=== PATIENT | female | born 1995 ===

== ENCOUNTER 2022-11-10 02:47 | Emergency (ER) | payer OTHER ==
[2022-11-10] MEDS ORDERED: HYDROcodone/ACETAM 7.5 MG/325 MG 15 ML UDC PO STA (03:39)
[2022-11-10] MEDS ORDERED: predniSONE 20 MG TABLET PO STA (03:39)
--- NOTE | 2022-11-10 03:53 | ED Physician Documentation ---
History of Present Illness - Stated complaint Stated Complaint: COUGHING/CONGESTION - Chief complaint Chief Complaint: Resp - History obtained from History obtained from: Patient, Family - Additonal information Additional information: The patient comes to the emergency department chief complaint of sore throat, congestion, Eye redness and irritation, and cough for the last 6 approximately week. He states the eye symptoms just started. The patient's main concern is that she has been on fertility medications ahead of an IUI procedure on November 14, and does not want to be sick for that. She states her had the same thing and is now better, but has been more severe for her. No shortness of breath. No chest pain. Review of Systems Ten Systems: 10 systems reviewed and negative Constitutional: reports: Reviewed and negative Eyes: reports: Discharge, Irritation. denies: Loss of vision, Decreased vision, Photophobia Ears: reports: Reviewed and negative Nose: reports: Rhinorrhea / runny nose, Congestion Throat: reports: Sore throat Cardiac: reports: Reviewed and negative Respiratory: reports: Cough GI: reports: Reviewed and negative : reports: Reviewed and negative Skin: reports: Reviewed and negative Musculoskeletal: reports: Reviewed and negative Neurologic: reports: Reviewed and negative Psychiatric: reports: Reviewed and negative Endocrine: reports: Reviewed and negative Immunocompromised: reports: Reviewed and negative PD PAST MEDICAL HISTORY - Present Medications Home Medications: Ambulatory Orders Medication Instructions Recorded Confirmed Chorionic Gonadotropin, Human 5,000 unit IM 11/10/22 [Novarel] Gentamicin 0.3% Ophth Drops 1 drops OPTH BID #5 ml 11/10/22 [Garamycin] HYDROcodone/ACET 7.5/325 PEREZ 10 ml PO Q6HR PRN #100 ml 11/10/22 [Lortab 7.5/325 Perez] Letrozole 2.5 mg PO 11/10/22 Medroxyprogesterone Acetate 5 mg PO 11/10/22 [Provera] Pnv No.95/Ferrous Fum/Folic AC 1 each PO 11/10/22 [ Tablet] predniSONE [Deltasone] 40 mg PO DAILY 5 Days #10 tablet 11/10/22 - Allergies Allergies/Adverse Reactions: Allergies Allergy/AdvReac Type Severity Reaction Status Date / Time No Known Allergies Allergy Unknown Verified 11/10/22 03:37 PD ED PE NORMAL - Vitals Vital signs reviewed: Yes - General General: Alert and oriented X 3, No acute distress, Well developed/nourished - HEENT HEENT: Atraumatic, PERRL, EOMI, Moist mucous membranes, Pharynx benign, Other (Moderate conjunctival injection bilaterally. No chemosis. Corneas are not hazy. No obvious drainage.) - Neck Neck: Supple, no meningeal sign - Cardiac Cardiac: RRR, No murmur - Respiratory Respiratory: No respiratory distress, Clear bilaterally - Abdomen Abdomen: Soft, Non tender, Non distended - Derm Derm: Normal color, Warm and dry, No rash - Extremities Extremities: No deformity, No edema - Neuro Neuro: Alert and oriented X 3 - Psych Psych: Normal mood, Normal affect Results - Vitals Vitals: Vital Signs - 24 hr 11/10/22 11/10/22 03:07 04:02 Temperature 36.9 C 36.7 C Heart Rate 88 91 Respiratory 18 18 Rate Blood Pressure 165/107 H 130/80 O2 Saturation 99 99 Oxygen O2 Source Room air - Labs Labs: Laboratory Tests 11/10/22 03:45 Nasal Adenovirus (PCR) NOT DETECTED Nasal B. parapertussis DNA (PCR) NOT DETECTED Nasal Coronavir 229E PCR NOT DETECTED Nasal Coronavir HKU1 PCR NOT DETECTED Nasal Coronavir NL63 PCR NOT DETECTED Nasal Coronavir OC43 PCR NOT DETECTED Nasal Enterovir/Rhinovir PCR DETECTED A Nasal Influenza B PCR NOT DETECTED Nasal Influenza A PCR NOT DETECTED Nasal Parainfluen 1 PCR NOT DETECTED Nasal Parainfluen 2 PCR NOT DETECTED Nasal Parainfluen 3 PCR NOT DETECTED Nasal Parainfluen 4 PCR NOT DETECTED Nasal RSV (PCR) NOT DETECTED Nasal B.pertussis DNA PCR NOT DETECTED Nasal C.pneumoniae (PCR) NOT DETECTED Omar Human Metapneumo PCR NOT DETECTED Nasal M.pneumoniae (PCR) NOT DETECTED Nasal SARS-CoV-2 (PCR) NOT DETECTED PD Medical Decision Making - ED course Complexity details: reviewed results, re-evaluated patient, considered differential, d/w patient, d/w family ED course: The patient was worked up with a viral panel. After very long discussion, she did also decide to have a dose of prednisone and of hydrocodone here. The patient would like some relief but is afraid to take any medications in advance of her IUI. I have advised her that while I do not feel that the medicines from greater than 24 hours prior would still be in her system at the time of the procedure, she should talk to her fertility specialist to make sure that they are okay with her taking the meds. I have sent prescriptions in for the patient. Departure - Departure Disposition: 01 Home, Self Care Clinical Impression: Upper respiratory tract infection Qualifiers: URI type: unspecified viral URI Qualified Code(s): J06.9 - Acute upper respiratory infection, unspecified Conjunctivitis Qualifiers: Conjunctivitis type: acute Acute conjunctivitis type: viral Laterality: bilateral Qualified Code(s): B30.9 - Viral conjunctivitis, unspecified Condition: Stable Instructions: ED Viral Syndrome Prescriptions: HYDROcodone/ACET 7.5/325 PEREZ [Lortab 7.5/325 Perez] 10 ml PO Q6HR PRN #100 ml PRN Reason: Pain predniSONE [Deltasone] 40 mg PO DAILY 5 Days #10 tablet Gentamicin 0.3% Ophth Drops [Garamycin] 1 drops OPTH BID #5 ml Comments: Your symptoms are most consistent with a viral illness, which will resolve on its own, given time. Depending which virus you have, the symptoms can last anywhere from a few days to a couple of weeks. A viral panel has been drawn and is pending at this time. We will contact you within any significant positives. If you wish to monitor your results online, you may go to our hospital website at [email or web address], click on the "my [facility]" tab, and sign up for the patient portal. You have been treated with a dose of steroid and a liquid narcotic with Tylenol today. Prescriptions for the same been electronically transmitted to the [facility] pharmacy in [place]. These medications will not remain in your system for more than 24 hours, but of course it is advisable to discuss the situation with your fertility specialist to determine whether there is any concern for taking the medications in advance of your procedure. Otherwise, please be sure to stay hydrated and get rest as much as possible. Discharge Date/Time: 11/10/22 04:12
[2022-11-10 04:10] VITALS: BP 130/80
[2022-11-10 05:50] LABS: B. PARAPERTUSSIS- RESP PCR PAN NOT DETECTED; B. PERTUSSIS- RESP PCR PANEL NOT DETECTED; C. PNEUMONIAE- RESP PCR PANEL NOT DETECTED; CORONAVIRUS 229E-RESP PCR NOT DETECTED; CORONAVIRUS HKU1-RESP PCR NOT DETECTED; CORONAVIRUS NL63-RESP PCR NOT DETECTED; CORONAVIRUS OC43-RESP PCR NOT DETECTED; HUMAN METAPNEUMOVIRUS NOT DETECTED; INFLUENZA A- RESP PCR PANEL NOT DETECTED; INFLUENZA B - RESP PCR PANEL NOT DETECTED; M. PNEUMONIAE- RESP PCR PANEL NOT DETECTED; PARAINFLUENZA VIRUS 1 NOT DETECTED; PARAINFLUENZA VIRUS 2 NOT DETECTED; PARAINFLUENZA VIRUS 3 NOT DETECTED; PARAINFLUENZA VIRUS 4 NOT DETECTED; RHINOVIRUS/ENTEROVIRUS DETECTED; RSV- RESP PCR PANEL NOT DETECTED; SARS-CoV-2 -RESP PCR PANEL NOT DETECTED
== END 2022-11-10 04:12 | disposition home or self-care (01) ==
LOC: ED 02:47
DX: B30.9 Viral conjunctivitis, unspecified (principal); J06.9 Acute upper respiratory infection, unspecified; Z20.822 Contact with and (suspected) exposure to COVID-19
CPT/HCPCS: 87633; 99282; 99283; A9270; J7512